=== PATIENT | male | born 1940 | race Caucasian/White ===

== ENCOUNTER 2024-05-11 11:45 | Emergency (ER) | payer OTHER, SELFPAY ==
--- NOTE | 2024-05-11 12:12 | XR_ITS ---
Examination: CT brain head without contrast. 2-D sagittal coronal reconstructions Date and time of exam:May 03, 2024 1359 hours INDICATIONS: Patient tripped and fell today with injury to the head, head pain CTDI: vol (mGy):54.6 DLP: (mGycm):1166 Technique: Multiple CT axial sections of the brain have been obtained, 5 mm slice thickness. Contrast has not been administered. 2-D sagittal, coronal reconstructions have been obtained Low dose protocols were performed. One or more of the following dose reduction techniques were used; automated exposure control, adjustment of the mA and/or KV according to patient size, use of iterative reconstruction technique. Findings: No significant ventricular enlargement. Intra-axial or extra-axial hemorrhage density is not seen. No mass effect or midline shift Basal cisterns are not remarkable. Fourth ventricle is midline. Cranial vault intact. Impression: Negative for acute hemorrhage, mass effect or midline shift
--- NOTE | 2024-05-11 12:12 | XR_ITS ---
Examination: CT cervical spine without contrast 2-D sagittal reconstructions 2-D coronal reconstructions 3-D reconstructions. Exam date and time:May 11, 2024 1359 hours INDICATIONS: Patient fell today with injury to the neck, neck pain CTDI:vol (mGy) 14.6 DLP: (mGycm) 343 Technique: Multiple 2 mm axial sections of the cervical spine have been obtained. The coronal and sagittal reconstructions have been obtained. 3-D reconstructions have been obtained. Low dose protocols were performed. One or more of the following dose reduction techniques were used; automated exposure control, adjustment of the mA and/or KV according to patient size, use of iterative reconstruction technique. Findings: Axial sections demonstrate intact base of the skull. C1 exhibit satisfactory relationship to the odontoid. No acute cervical vertebral body fracture seen. Alignment posterior spinous processes satisfactory. Impression: No acute cervical fracture.
--- NOTE | 2024-05-11 12:12 | XR_ITS ---
Examination: CT maxillofacial, without intravenous contrast. 2-D sagittal reconstructions. 3-D reconstructions. Date and time of exam:May 11, 2024 at 1359 hours INDICATIONS: Patient tripped and fell today with injury to the face, facial pain CTDI: vol (mGy):26 DLP: (mGycm):193 Technique: Multiple axial images of maxillofacial region, 3.0 mm slice thickness. 2-D sagittal and coronal reconstructions. 3-D reconstructions. Low dose protocols were performed. One or more of the following dose reduction techniques were used; automated exposure control, adjustment of the mA and/or KV according to patient size, use of iterative reconstruction technique. Findings: Frontal bone intact Orbital rims appear intact Optic globes exhibit symmetry No nasal bone fracture No depression zygomatic arches Maxilla mandible intact IMPRESSION: No acute facial fracture.
--- NOTE | 2024-05-11 12:15 | EDNOTE_ITS ---
<Statement entered by Shruti Ryan MD - 05/11/24 16:03> As co-signing physician, I was present and available for consult prn. I concur with the plan and care as documented by the midlevel provider. ED General RME/HPI General Chief complaint: Fall Stated complaint: FALL Time Seen by Provider: 05/11/24 11:56 Arrival date/time: 05/11/24 11:45 RME / HPI RME / HPI narrative: 83-year-old male patient came in with EMS for evaluation regarding ground-level fall. Incident happened earlier today, patient tripped and fell on the side walk, sustaining abrasion to the nose, abrasion to the upper lip, and abrasion to the right middle finger. Patient denies any headache denies any neck pain denies any other complaints no medication was taken prior to arrival. Patient is taking Xarelto. Related Data Home Medications ?Medication ?Instructions ?Recorded ?Confirmed atenolol 50 mg tablet 50 mg PO DAILY ##0 09/06/10 rosuvastatin 10 mg tablet (Crestor) 10 mg PO HS ##0 Allergies Allergy/AdvReac Type Severity Reaction Status Date / Time No Known Drug Allergies Allergy Verified 05/11/24 12:15 Review of Systems Review of Systems Narrative Review of Systems: Review of system reviewed and within normal limits except mentioned in HPI ED Exam Narrative Physical exam: VITAL SIGNS: Reviewed. GENERAL APPEARANCE: Alert and interactive, follows commands, no acute distress, HEAD AND FACE: Abrasion, nose ENT: PERRL, pink conjunctivitis, eyelid no trauma, Mucous membrane moist. Abrasion upper lip NECK: Supple, nontender, no nuchal rigidity. CHEST: No tenderness, no crepitus, no paradoxical movement, no retractions. LUNGS: Clear, well ventilated, symmetric, no rales, no wheezing, no ronchi, no stridor, good breath sounds bilaterally. HEART: Regular rate, regular rhythm, no murmur, no gallops. ABDOMEN: Soft, positive bowel sounds, nondistended, no guarding, nontender, no rebound, no masses, RECTAL: Deferred. GENITAL: Deferred. NEUROLOGICAL: Gross motor function intact sensory function intact, Appropriate for age. MUSCULOSKELETAL: low back nontender, full range of motion. EXTREMITIES: Nontender, full range of motion. SKIN: Color pink, dry, no rash, no lacerations, no abrasions, no contusions. LYMPHATICS: Deferred. Course Quality Measures none Orders Category Date Time Status CT cervical spine wo con Stat Exams 05/11/24 12:[address] facial bones wo con Stat Exams 05/11/24 12:[address] head/brain wo con Stat Exams 05/11/24 12:12 Completed Acetaminophen Tab [Tylenol ES Tab] Med 05/11/24 12:15 Discontinued 500 mg PO X1 ONE TET,DIP/PERT AC (Adult)-Tdap [Boostrix Adult (Tdap) Med 05/11/24 12:14 Discontinued Vacc] 0.5 ml IMI .ONCE ONE Vital Signs Vital signs: Vital Signs Temperature 98.0 F 05/11/24 12:22 Pulse Rate 72 05/11/24 12:22 Respiratory Rate 16 05/11/24 12:22 Blood Pressure 165/96 H 05/11/24 12:22 Pulse Oximetry (%) 96 05/11/24 12:22 Oxygen Delivery Method Room Air 05/11/24 12:22 MDM Patient data External records reviewed:: None Clinical information provided by:: patient and family Social determinants that could affect healthcare access:: none Patient has the following chronic illnesses:: Hypertension, on Xarelto How is presenting disease/condition affected by chronic disease/condition?: uneffected by Evaluation data The following diagnostics were reviewed and interpreted by me:: radiology exam(s) Lab and/or radiology exams considered but not ordered:: None Interpretation Summary: CT head , CT neck, CT face all came back normal Medications Medications considered but not ordered:: None Medication administrations:: Medication Administration History Discontinued Medications Acetaminophen (Acetaminophen 500 Mg Tablet) 500 mg PO X1 ONE Stop: 05/11/24 12:16 Last Admin: 05/11/24 12:53 Dose: Not Given Documented By: GM Non-Admin Reason: Patient Refused Diphtheria/Tetanus/Acell Pertussis (Diphth,Pertuss(Acell),Tet Vac 0.5 Ml Syr- Adult) 0.5 ml IMi .ONCE ONE Stop: 05/11/24 12:15 Last Admin: 05/11/24 12:45 Dose: 0.5 ml Documented By: GM Tylenol and Boostrix Consultations Consultation(s) initiated? (list below): No Diagnosis Differential Diagnosis ED Complaint MDM: Facial contusion facial abrasion finger abrasion status post fall Most likely diagnosis given after review of the tests above:: Facial abrasion, finger abrasion, status post fall Admission Indicated Admission indicated?: not indicated Explain why admission is indicated or not indicated:: None Admission Request Was there a request for admission?: No Disposition Plan Disposition Plan: Discharge Discharge Attestation Discharge Attestation: The patient and all family members were given an opportunity to ask questions and understood the discharge instructions. Discharge instructions specifically effects, indications for sooner follow up or return to the emergency department, and the expected course of current diagnosis. Patient condition: Stable Medical Decision Making MDM Narrative MDM Narrative: 83-year-old male patient came in with EMS for evaluation regarding ground-level fall. Incident happened earlier today, patient tripped and fell on the side walk, sustaining abrasion to the nose, abrasion to the upper lip, and abrasion to the right middle finger. Patient denies any headache denies any neck pain denies any other complaints no medication was taken prior to arrival. Patient is taking Xarelto. CT of the head came back unremarkable CT of the face came back unremarkable CT of the neck came back unremarkable. Results discussed with the patient. Neosporin dressing applied. Patient received Boostrix IM. Differential Diagnosis Differential Diagnosis: Facial contusion facial abrasion finger abrasion status post fall Discharge Plan Plan Patient Disposition: HOME (Self Care) Disposition Comment: Stable Prescriptions/Referrals Prescriptions/Med Rec: No Action atenolol 50 MG tablet 50 mg PO DAILY Qty: 0 rosuvastatin [Crestor] 10 MG tablet 10 mg PO HS Qty: 0 Referrals: No Primary/Family,Physician [Primary Care Provider] - In 1 week Problem List Clinical Impression: Fall, Abrasion of face, Abrasion of finger Patient/Caregiver Discharge Instructions Discharge Activity: activity as tolerated Education Materials: ED Abrasions Additional Instructions: Thank you for the opportunity for serving you today. You are stable for discharged . You are advised to: Follow-up with your PCP in 1 to 2 days Return to ED for worsening of symptoms Increase oral fluids Daily dressing with Neosporin as needed Print Language: Thai Stand Alone Forms: Juliette Award Info., Patient Portal Info Letter AZUL/ANDREW Supervising Physician AZUL/ANDREW Supervising Physician: MD Connor
[2024-05-11 12:22] VITALS: BP 165/96; PULSE 72; RESP 16; TEMP 36.7; O2SAT 96; BMI 32.1
--- NOTE | 2024-05-11 12:30 | PC.NURSE ---
PT BIBA S/P [facility]; PER EMS, PT WAS AT [facility] WHEN HE TRIED STEPPING OVER CONCRETE AND TRIPPED OVER. PT FELL FACE FIRST AND HAS ABRASIONS TO FACE. NO LOC. PT DENIES ANY PAIN; PT DID REPORT HE TAKES BLOOD THINNERS BUT DOES NOT KNOW THE NAME OF IT. PMH OF HYPERTENSION, AND HYPERLIPIDEMIA AND BLOOD CLOT IN THE STOMACH S/P OPEN ABDOMINAL SURGERY. UPON ARRIVAL, PT C/O FACIAL PAIN AND THE RIGHT 3RD DIGIT PAIN BUT IT'S NOT TOO BAD RIGHT NOW PER PT. PT CONNECTED TO MONITORS AT THIS TIME.
[2024-05-11 12:32] VITALS: BMI 36.9
[2024-05-11] MEDS: DIPHTH,PERTUSS(ACELL),TET VAC 0.5 ML SYR- ADULT IMi (12:45)
[2024-05-11 14:55] VITALS: BP 190/101; PULSE 71; RESP 17; TEMP 36.7; O2SAT 96
== END 2024-05-11 15:26 | disposition home or self-care (01) ==
PROVIDERS: Emergency Provider Emergency Medicine
DX: S00.31XA Abrasion of nose, initial encounter (principal); S60.412A Abrasion of right middle finger, initial encounter; S00.511A Abrasion of lip, initial encounter; S19.9XXA Unspecified injury of neck, initial encounter; S09.93XA Unspecified injury of face, initial encounter; S09.90XA Unspecified injury of head, initial encounter; W01.0XXA Fall on same level from slipping, tripping and stumbling without subsequent striking against object, initial encounter; Y92.480 Sidewalk as the place of occurrence of the external cause; Z23 Encounter for immunization
CPT/HCPCS: 70450; 70486; 72125; 90471; 90715; 99284

== ENCOUNTER → 2024-11-12 | Outpatient (CLI) | payer OTHER, SELFPAY ==
--- NOTE | 2024-11-12 | XR_ITS ---
Examination: CT brain head without contrast. 2-D sagittal coronal reconstructions Date and time of exam:November 12, 2024, 1439 hours, comparison May 11, 2024 INDICATIONS: Vertigo headaches beginning 6 months ago CTDI: vol (mGy):54 DLP: (mGycm):1147 Technique: Multiple CT axial sections of the brain have been obtained, 5 mm slice thickness. Contrast has not been administered. 2-D sagittal, coronal reconstructions have been obtained Low dose protocols were performed. One or more of the following dose reduction techniques were used; automated exposure control, adjustment of the mA and/or KV according to patient size, use of iterative reconstruction technique. Findings: No significant ventricular enlargement. Intra-axial or extra-axial hemorrhage density is not seen. No mass effect or midline shift Basal cisterns are not remarkable. Fourth ventricle is midline. Cranial vault intact. Impression: Negative for acute hemorrhage, mass effect or midline shift As clinically warranted, if symptoms persist, consider brain MRI follow-up
== END | disposition home or self-care (01) ==
LOC: CCTX 14:26
PROVIDERS: Referring Provider Student in an Organized Health Care Education/Training Program; Visit Provider Student in an Organized Health Care Education/Training Program
DX: R42 Dizziness and giddiness (principal); R51.9 Headache, unspecified; F03.90 Unspecified dementia, unspecified severity, without behavioral disturbance, psychotic disturbance, mood disturbance, and anxiety
CPT/HCPCS: 70450